=== PATIENT | female | born 1930 | race Caucasian/White ===

== ENCOUNTER 2019-03-26 15:59 | Emergency (ER) | payer MEDICARE, OTHER ==
[~2019-03-26] VITALS: Ht 152.4 cm; Wt 83.5 kg
[~2019-03-26 15:59] MED LIST: ALLO100T PO; ARIP5TAB10 PO; ARMO150T2 PO; ASPI-605 PO; ATOR20TA PO; BLOO-129 IN; DESV50TA PO; ERGO500014 PO; LURA40TA PO; METF-440 PO; OMEG1CAP55 PO; PANT40TA2 PO; SITA100T PO
--- NOTE | 2019-03-26 16:10 | NUR ---
"Chronic Back pain more on left side last couple nights +n/v" AA/OX3, SON AT BEDSIDE, PATIENT IN NO DISTRESS, ATTACHED TO THE MONITOR. KEPT COMFORTABLE. DENIES PAIN AT THIS TIME.
[2019-03-26 16:46] LABS: APPEARANCE,URINE Slightly Cloudy (CLEAR); BILIRUBIN,URINE Negative (NEGATIVE); BLOOD, URINE Negative Ery/uL (NEGATIVE); COLOR,URINE Yellow (YELLOW); KETONES,URINE Trace (NEGATIVE); LEUKOCYTE ESTERASE ,URINE Trace (NEGATIVE); NITRITE, URINE Positive (NEGATIVE); PH,URINE 7.5 (5.0-8.0); PROTEIN,URINE Negative (NEGATIVE); UGLUCOSE Negative (NEGATIVE); UROBILINOGEN,URINE 0.2 EU/dL (0.2)
[2019-03-26] MEDS ORDERED: ACETAMINOPHEN ES 500 MG TABLET ONE (16:46)
[2019-03-26] MEDS ORDERED: ACETAMINOPHEN ES 500 MG TABLET PO ONE (17:00)
[2019-03-26] MEDS ORDERED: IV NS 0.9% 500 ML BAG IV ONE (17:00)
[2019-03-26 17:02] LABS: BACTERIA,URINE 2+ /HPF (None Seen); RBC,URINE NONE SEEN /HPF (0-2); SQUAMOUS EPITHELIAL CELL,UR Few /HPF (None Seen)
[2019-03-26 17:05] LABS: CALCIUM, SERUM 9.3 mg/dL (8.5-10.1); CARBON DIOXIDE 34 mmol/L (21-32); CHLORIDE 104 mmol/L (98-107); CREATININE 1.2 mg/dL (0.6-1.3); GLUCOSE 97 mg/dL (74-106); POTASSIUM 4.4 mmol/L (3.5-5.1); SODIUM SERUM 143 mmol/L (136-145); UREA NITROGEN, BLOOD 20 mg/dL (7-18)
[2019-03-26 17:10] LABS: ALANINE AMINOTRANSFERASE 27 U/L (12-78); ALBUMIN 3.4 g/dL (3.4-5.0); ALKALINE PHOSPHATASE 58 U/L (46-116); ASPARTATE AMINOTRANSFERASE 25 U/L (15-37); BILIRUBIN,DIRECT 0.1 mg/dL (0.0-0.2); BILIRUBIN,TOTAL 0.2 mg/dL (0.2-1.0); LIPASE 223 U/L (73-393); TOTAL PROTEIN, SERUM 7.2 g/dL (6.4-8.2)
[2019-03-26 17:20] LABS: BASOPHILS % (AUTO) 0.3 % (0.0-2.0); EOSINOPHILS % (AUTO) 2.4 % (0.0-6.0); HEMATOCRIT 31 % (33-45); HEMOGLOBIN 10.1 g/dL (11.5-14.8); LYMPHOCYTES # (AUTO) 1.7 /CMM (0.8-4.8); LYMPHOCYTES % (AUTO) 34.7 % (20.0-44.0); MEAN CORPUSCULAR HGB CONC 32 g/dl (31.0-36.0); MEAN CORPUSCULAR VOLUME 89 fL (82-100); MONOCYTES # (AUTO) 0.4 /CMM (0.1-1.30); MONOCYTES % (AUTO) 7.5 % (2.0-12.0); NEUTROPHILS # (AUTO) 2.6 /CMM (1.8-8.9); NEUTROPHILS % (AUTO) 55.1 % (43.0-81.0); PLATELET COUNT (AUTO) 142 /CMM (150-450); RED BLOOD CELL COUNT(AUTO) 3.54 MIL/uL (4.0-5.2); WHITE BLOOD COUNT (AUTO) 4.8 K/uL (4.3-11.0)
[2019-03-26] MEDS ORDERED: CEFTRIAXONE 1GM BAG (ER ONLY) 1 GM/50 ML PIGGYBACK IV ONE (19:00)
[2019-03-26] MEDS ORDERED: CEFTRIAXONE 1GM BAG (ER ONLY) 50 ML IV ONE (19:02)
--- NOTE | 2019-03-26 19:33 | NUR ---
IV removed. Catheter intact and site benign. Pressure and 4x4 applied to site. No bleeding noted.Patient discharged to home in stable condition. Written and verbal after care instructions given. Patient verbalizes understanding of instruction.
[2019-03-26 19:34] VITALS: BP 130/80
== END 2019-03-26 19:35 | disposition home or self-care (01) ==
LOC: ER 16:06
DX: N39.0 Urinary tract infection, site not specified (principal); E11.9 Type 2 diabetes mellitus without complications; R19.7 Diarrhea, unspecified; F03.90 Unspecified dementia, unspecified severity, without behavioral disturbance, psychotic disturbance, mood disturbance, and anxiety; I10 Essential (primary) hypertension; K21.9 Gastro-esophageal reflux disease without esophagitis; E78.00 Pure hypercholesterolemia, unspecified; E86.0 Dehydration; Z98.890 Other specified postprocedural states; Z79.82 Long term (current) use of aspirin
CPT/HCPCS: 36415; 71045; 74176; 80048; 80076; 81001; 83690; 84484; 85025; 85730; 87077; 87086; 87186; 93005; 96365; 99284; J0696; J7040; 81000-TC

== ENCOUNTER 2019-07-18 23:12 | Emergency (ER) | payer MEDICARE, OTHER ==
[~2019-07-18] VITALS: Ht 152.4 cm; Wt 76.2 kg
--- NOTE | 2019-07-18 23:40 | NUR ---
PT PLACED AT BED 9 AND CAME TO ER W/ SON AT BEDSIDE C/O +N/+V/+D FOR 5 DAYS. PT STATES SHE HAS A SORE THROAT WELL. AAOX4. NO SOB. BREATHING EVENLY AND UNLABORED. NOT IN ANY DISTRESS. CONNECTED TO MONITOR.
--- NOTE | 2019-07-18 23:59 | NUR ---
xray at bedside
[2019-07-19] MEDS ORDERED: IV NS 0.9% 500 ML BAG IV ONE
[2019-07-19 00:05] LABS: BASOPHILS % (AUTO) 0.4 % (0.0-2.0); EOSINOPHILS % (AUTO) 0.2 % (0.0-6.0); HEMATOCRIT 33 % (33-45); HEMOGLOBIN 10.7 g/dL (11.5-14.8); LYMPHOCYTES # (AUTO) 0.8 /CMM (0.8-4.8); LYMPHOCYTES % (AUTO) 13.8 % (20.0-44.0); MEAN CORPUSCULAR HGB CONC 33 g/dl (31.0-36.0); MEAN CORPUSCULAR VOLUME 89 fL (82-100); MONOCYTES # (AUTO) 0.5 /CMM (0.1-1.30); MONOCYTES % (AUTO) 8.7 % (2.0-12.0); NEUTROPHILS # (AUTO) 4.6 /CMM (1.8-8.9); NEUTROPHILS % (AUTO) 76.9 % (43.0-81.0); PLATELET COUNT (AUTO) 160 /CMM (150-450)
--- NOTE | 2019-07-19 00:12 | NUR ---
FLU SPECIMEN SAMPLE OBTAINED FROM PATIENT
[2019-07-19 01:04] LABS: CALCIUM, SERUM 9.2 mg/dL (8.5-10.1); CARBON DIOXIDE 25 mmol/L (21-32); CHLORIDE 101 mmol/L (98-107); CREATININE 1.3 mg/dL (0.6-1.3); GLUCOSE 112 mg/dL (74-106); POTASSIUM 3.8 mmol/L (3.5-5.1); SODIUM SERUM 140 mmol/L (136-145); UREA NITROGEN, BLOOD 22 mg/dL (7-18)
[2019-07-19 01:10] LABS: ALANINE AMINOTRANSFERASE 17 U/L (12-78); ALBUMIN 3.4 g/dL (3.4-5.0); ALKALINE PHOSPHATASE 43 U/L (46-116); ASPARTATE AMINOTRANSFERASE 30 U/L (15-37); BILIRUBIN,DIRECT 0.1 mg/dL (0.0-0.2); BILIRUBIN,TOTAL 0.4 mg/dL (0.2-1.0); TOTAL PROTEIN, SERUM 7.9 g/dL (6.4-8.2)
--- NOTE | 2019-07-19 02:51 | NUR ---
IV removed. Catheter intact and site benign. Pressure and 4x4 applied to site. No bleeding noted. Patient discharged to home in stable condition. Written and verbal after care instructions given. Patient verbalizes understanding of instruction. ambulatory with a steady gait noted. pt aaox4 no acute distress noted, resp even and unlabored. pt son at bedside to take pt home.
[2019-07-19 02:53] VITALS: BP 127/63
== END 2019-07-19 02:54 | disposition home or self-care (01) ==
LOC: ER 23:15
DX: J06.9 Acute upper respiratory infection, unspecified (principal); R11.2 Nausea with vomiting, unspecified; F03.90 Unspecified dementia, unspecified severity, without behavioral disturbance, psychotic disturbance, mood disturbance, and anxiety; E11.9 Type 2 diabetes mellitus without complications; I10 Essential (primary) hypertension; K21.9 Gastro-esophageal reflux disease without esophagitis; E78.00 Pure hypercholesterolemia, unspecified; Z98.890 Other specified postprocedural states; Z79.899 Other long term (current) drug therapy; Z79.82 Long term (current) use of aspirin
CPT/HCPCS: 36415; 71045; 80048; 80076; 84145; 84484; 85025; 87804 ×2; 99284; J7040

== ENCOUNTER 2019-11-11 21:32 | Emergency (ER) | payer MEDICARE, OTHER ==
[~2019-11-11] VITALS: Ht 152.4 cm; Wt 75.7 kg
--- NOTE | 2019-11-11 22:07 | NUR ---
at the bed side
--- NOTE | 2019-11-11 22:10 | NUR ---
BIB SON C/O ABDOMINAL PAIN WITH NAUSEA, - VOMITING. PT WAS PLACED ON A MONITOR ,. SATTING 96% ON R/A. NO SOB AT THIS TIME. WILL CONT TO MONITOR,
[2019-11-11 22:38] LABS: BASOPHILS # (AUTO) 0.1 /CMM (0.0-0.2); BASOPHILS % (AUTO) 1.8 % (0.0-2.0); EOSINOPHILS % (AUTO) 3.2 % (0.0-6.0); HEMATOCRIT 29 % (33-45); HEMOGLOBIN 9.7 g/dL (11.5-14.8); LYMPHOCYTES # (AUTO) 1.9 /CMM (0.8-4.8); LYMPHOCYTES % (AUTO) 32.4 % (20.0-44.0); MEAN CORPUSCULAR HGB CONC 33 g/dl (31.0-36.0); MEAN CORPUSCULAR VOLUME 91 fL (82-100); MONOCYTES # (AUTO) 0.4 /CMM (0.1-1.30); MONOCYTES % (AUTO) 7.6 % (2.0-12.0); NEUTROPHILS # (AUTO) 3.1 /CMM (1.8-8.9); PLATELET COUNT (AUTO) 183 /CMM (150-450); RED BLOOD CELL COUNT(AUTO) 3.23 MIL/uL (4.0-5.2); WHITE BLOOD COUNT (AUTO) 5.7 K/uL (4.3-11.0)
[2019-11-11 22:51] LABS: ALANINE AMINOTRANSFERASE < 6 U/L (12-78); ALBUMIN 3.4 g/dL (3.4-5.0); ALKALINE PHOSPHATASE 50 U/L (46-116); ASPARTATE AMINOTRANSFERASE 38 U/L (15-37); BILIRUBIN,TOTAL 0.1 mg/dL (0.2-1.0); CALCIUM, SERUM 9.2 mg/dL (8.5-10.1); CARBON DIOXIDE 30 mmol/L (21-32); CHLORIDE 100 mmol/L (98-107); CREATININE 1.2 mg/dL (0.6-1.3); GLUCOSE 128 mg/dL (74-106); LIPASE 322 U/L (73-393); POTASSIUM 4.5 mmol/L (3.5-5.1); SODIUM SERUM 136 mmol/L (136-145); TOTAL PROTEIN, SERUM 7.2 g/dL (6.4-8.2); UREA NITROGEN, BLOOD 18 mg/dL (7-18)
[2019-11-11 23:40] LABS: APPEARANCE,URINE Clear (CLEAR); BILIRUBIN,URINE Negative (NEGATIVE); BLOOD, URINE Negative Ery/uL (NEGATIVE); COLOR,URINE Yellow (YELLOW); KETONES,URINE Negative (NEGATIVE); LEUKOCYTE ESTERASE ,URINE Small (NEGATIVE); NITRITE, URINE Negative (NEGATIVE); PROTEIN,URINE Negative (NEGATIVE); UGLUCOSE Negative (NEGATIVE); UROBILINOGEN,URINE 0.2 EU/dL (0.2)
[2019-11-11] MEDS ORDERED: AZITHROMYCIN 250 MG TABLET ONE (23:46)
[2019-11-12] MEDS ORDERED: AZITHROMYCIN 250 MG TABLET PO ONE
--- NOTE | 2019-11-12 00:05 | NUR ---
pt medically clear for D/C. IV removed. Catheter intact and site benign. Pressure and 4x4 applied to site. No bleeding noted.Patient discharged to home in stable condition. Rx and Written and verbal after care instructions given. Patient and son verbalizes understanding of instruction.
[2019-11-12 00:06] LABS: BACTERIA,URINE Few /HPF (None Seen); RBC,URINE 0-2 /HPF (0-2); SQUAMOUS EPITHELIAL CELL,UR Few /HPF (None Seen)
[2019-11-12 01:52] VITALS: BP 119/67
== END 2019-11-12 00:05 | disposition home or self-care (01) ==
LOC: ER 21:32
DX: J18.9 Pneumonia, unspecified organism (principal); F03.90 Unspecified dementia, unspecified severity, without behavioral disturbance, psychotic disturbance, mood disturbance, and anxiety; I10 Essential (primary) hypertension; K21.9 Gastro-esophageal reflux disease without esophagitis; E11.9 Type 2 diabetes mellitus without complications; R94.31 Abnormal electrocardiogram [ECG] [EKG]; E78.00 Pure hypercholesterolemia, unspecified; Z98.890 Other specified postprocedural states; Z79.899 Other long term (current) drug therapy; Z79.82 Long term (current) use of aspirin
CPT/HCPCS: 36415; 71045-TC; 80048-TC; 80076-TC; 81000-TC; 83690-TC; 84484-TC; 85025-TC; 87086-TC; 87186-TC

== ENCOUNTER 2019-12-07 00:23 | Inpatient (IN) | payer MEDICARE, OTHER ==
[~2019-12-07] VITALS: Ht 152.4 cm; Wt 85.4 kg
[2019-12-07] MEDS ORDERED: LIDOCAINE VISCOUS 2% UD 15 ML UDC ONE (00:48)
[2019-12-07] MEDS ORDERED: MAG HYDROX/AL HYDROX/SIMETH 30 ML UDC ONE (00:49)
--- NOTE | 2019-12-07 00:59 | NUR ---
PATIENT CAME TO ER BED 9 C/O MID EPIGASTRIC PAIN THAT OCCURRED 30x MINUTES MACHINE DESIGNER. PATENT C/O OF BURNING SENSATION. AAOX4. NO SOB. BREATHING EVENLY AND UNLABORED ON ROOM AIR.
[2019-12-07] MEDS ORDERED: ASPIRIN 81 MG TAB.CHEW PO ONE (01:00)
[2019-12-07] MEDS ORDERED: LIDOCAINE VISCOUS 2% UD 15 ML UDC MM ONE (01:00)
[2019-12-07] MEDS ORDERED: MAG HYDROX/AL HYDROX/SIMETH 30 ML UDC PO ONE (01:00)
[2019-12-07] MEDS ORDERED: ASPIRIN 81 MG TAB.CHEW ONE (01:03)
[2019-12-07 01:04] LABS: EOSINOPHILS % (AUTO) 3.3 % (0.0-6.0); HEMATOCRIT 31 % (33-45); HEMOGLOBIN 10.1 g/dL (11.5-14.8); LYMPHOCYTES # (AUTO) 1.7 /CMM (0.8-4.8); MEAN CORPUSCULAR HGB CONC 33 g/dl (31.0-36.0); MEAN CORPUSCULAR VOLUME 90 fL (82-100); MONOCYTES # (AUTO) 0.3 /CMM (0.1-1.30); MONOCYTES % (AUTO) 7.5 % (2.0-12.0); NEUTROPHILS # (AUTO) 2.4 /CMM (1.8-8.9); NEUTROPHILS % (AUTO) 52.2 % (43.0-81.0); PLATELET COUNT (AUTO) 158 /CMM (150-450); RED BLOOD CELL COUNT(AUTO) 3.41 MIL/uL (4.0-5.2); WHITE BLOOD COUNT (AUTO) 4.6 K/uL (4.3-11.0)
[2019-12-07 01:15] LABS: CARBON DIOXIDE 32 mmol/L (21-32); CHLORIDE 101 mmol/L (98-107); CREATININE 1.4 mg/dL (0.6-1.3); GLUCOSE 86 mg/dL (74-106); POTASSIUM 4.2 mmol/L (3.5-5.1); SODIUM SERUM 139 mmol/L (136-145); UREA NITROGEN, BLOOD 13 mg/dL (7-18)
[2019-12-07 01:20] LABS: ALANINE AMINOTRANSFERASE 20 U/L (12-78); ALBUMIN 3.6 g/dL (3.4-5.0); ALKALINE PHOSPHATASE 44 U/L (46-116); ASPARTATE AMINOTRANSFERASE 21 U/L (15-37); BILIRUBIN,DIRECT 0.1 mg/dL (0.0-0.2); BILIRUBIN,TOTAL 0.2 mg/dL (0.2-1.0); LIPASE 281 U/L (73-393); TOTAL PROTEIN, SERUM 7.1 g/dL (6.4-8.2)
[2019-12-07] MEDS ORDERED: ONDANSETRON HCL/PF 4 MG/2 ML VIAL IVP PRN (02:00)
[2019-12-07] MEDS ORDERED: ZOLPIDEM TARTRATE 5 MG TABLET PO PRN (02:00)
[2019-12-07] MEDS ORDERED: Z GUARD REMEDY 2 OZ OINT TP PRN (02:00)
[2019-12-07] MEDS ORDERED: HYDROCODONE/APAP 5/325MG TABLET PO PRN (02:00)
[2019-12-07] MEDS ORDERED: IV NS 0.9% 1,000 ML IV PRN (02:00)
[2019-12-07] MEDS ORDERED: MAGNESIUM HYDROXIDE 30 ML UDC PO PRN (02:00)
--- NOTE | 2019-12-07 02:10 | NUR ---
PER NURSING SUP, NO TELE BED AVAILABLE AT THIS TIME
--- NOTE | 2019-12-07 02:20 | NUR ---
AMBULATED TO THE RESTROOM WITH ASSISTANCE
--- NOTE | 2019-12-07 02:29 | NUR ---
US AT BEDSIDE.
--- NOTE | 2019-12-07 06:04 | NUR ---
PATIENT IS ASLEEP. EASILY AROUSED THROUGH VERBAL AND TACTILE STIMULI. BREATHING EVENLY AND UNLABORED ON ROOM AIR. CONNECTED TO MONITOR.
--- NOTE | 2019-12-07 07:20 | NUR ---
RECEIVED REPORT FROM WILIAN NEWSOME FOR [facility], PT IS AAOX3, NOT IN RESPIRATORY DISTRESS, V/S STABLE, KEPT RESTED AND COMFORTABLE, WILL CONTINUE TO MONITOR.
--- NOTE | 2019-12-07 08:16 | NUR ---
PT ASSIGNED [id number]
--- NOTE | 2019-12-07 08:40 | NUR ---
REPORT GIVEN TO WILIAN WARREN FOR [facility].
[2019-12-07] MEDS ORDERED: OMEGA ACID ETHYL ESTERS PO SCH (09:00)
[2019-12-07] MEDS ORDERED: Medication Not On Formulary EA (Sitagliptin Phosphate (Januvia) 100 MG) PO SCH (09:00)
[2019-12-07] MEDS ORDERED: ASPIRIN EC 81 MG TABLET.DR PO SCH (09:00)
[2019-12-07] MEDS ORDERED: Armodafinil (Nuvigil) 150 MG PO SCH (09:00)
[2019-12-07] MEDS ORDERED: IV NS 0.9% 1,000 ML IV ONE (09:30)
--- NOTE | 2019-12-07 09:30 | NUR ---
CLAY [employer]IG[employer] LOADERFIELD CANE SCALE CLERK NOTES Received Patient via jonel. Patient in stable condition. VS stable with no acute distress. Breathing even and unlabored on 2LPM via NC with no respiratory distress. Denies pain. No signs and symptoms of pain. Skin intact. Telemonitor in place and patent reading SB with HR-52. 20g PIV on RAC clean, intact, patent and flushing well. Safety precautions in place. Bed locked and set to lowest position with side rails x 2 up. All needs rendered at this time. Call light within reach. Will continue to monitor.
[2019-12-07] MEDS: ASPIRIN 81 MG TAB.CHEW PO SCH (10:37)
[2019-12-07] MEDS: METFORMIN 500 MG TABLET PO SCH ×2 (10:37→16:26)
[2019-12-07] MEDS: LINAGLIPTIN 5 MG TABLET PO SCH (10:38)
[2019-12-07] MEDS: PANTOPRAZOLE 40 MG TABLET.DR PO SCH (10:38)
[2019-12-07] MEDS: ATORVASTATIN 10 MG TABLET PO SCH (10:38)
[2019-12-07] MEDS ORDERED: ATORVASTATIN 10 MG TABLET PO SCH (11:00)
--- NOTE | 2019-12-07 11:00 | NUR ---
OCCUPATIONAL HEALTH AND SAFETY ADVISER NOTES VTE score 4. DVT Pumps ordered and received. Patient refusing at this time. Ambulatory with walker. Patient in stable condition. Will continue to monitor.
[2019-12-07] MEDS: ACETAMINOPHEN 325 MG TABLET PO PRN (12:53)
[2019-12-07 13:40] LABS: CHOLESTEROL 124 mg/dL (<200); FERRITIN 19 ng/mL (8-388); HDL CHOLESTEROL 58 mg/dL (40-60); LDL 54 mg/dL (0-99); TRIGLYCERIDES 93 mg/dL (30-150)
[2019-12-07 13:49] LABS: IRON, SERUM 47 ug/dl (50-175); TOTAL IRON BINDING CAPACITY 310 ug/dl (250-450)
[2019-12-07 16:00] VITALS: BP 116/57
--- NOTE | 2019-12-07 18:31 | NUR ---
EAR MUFF ASSEMBLER CLOSING NOTES Patient resting in bed. VS stable with no acute distress. Breathing even and unlabored on 2LPM via NC with no respiratory distress. Denies pain. No signs and symptoms of pain. Skin intact. Telemonitor in place and patent reading SB with HR-56. 20g PIV on RAC clean, intact, patent and flushing well with NS infusing at 100ml/hr. Safety precautions in place. Bed locked and set to lowest position with side rails x 2 up. All needs rendered at this time. Call light within reach. Will endorse plan of care to oncoming shift.
--- NOTE | 2019-12-07 19:44 | NUR ---
RN GYN NOTES PATIENT RECEIVED IN BED RESTING, ALERT AND ORIENTED X 4, MAINLY FARSI SPEAKING. PATIENT ON NASAL CANNULA, 2L WITH NO SIGNS OF RESPIRATORY DISTRESS PRESENT, WITH EVEN NON-LABORED BREATHING. PATIENT ON TELE MONITOR SINUS BRADYCARDIA HEART RATE 59. IV ACCESS INTACT AND PATENT. SAFETY PRECAUTIONS IN PLACE WITH BED IN THE LOWEST POSITION, BILATERAL SIDE RAILS UP, BED LOCKED, BED ALARM ON, AND CALL LIGHT WITHIN EASY REACH OF THE PATIENT. WILL CONTINUE TO MONITOR PATIENT.
[2019-12-07 20:35] VITALS: BP 127/64
--- NOTE | 2019-12-07 22:00 | NUR ---
CARTON AND CAN SUPPLY SUPERVISOR NOTES PATIENT REMOVED IV ACCESS, INFORMED AND EDUCATED THE IMPORTANCE OF IV ACCESS. INSERTED NEW IV LINE ON RIGHT FOREARM, 20 GAUGE. HIDE THE LINES AND TUBING. WILL CONTINUE TO MONITOR PATIENT.
[2019-12-07] MEDS: ARIPIPRAZOLE 5 MG TABLET PO SCH (22:39)
[2019-12-08] VITALS: BP 135/54
[2019-12-08 04:03] VITALS: BP 121/62
--- NOTE | 2019-12-08 07:00 | NUR ---
AUTOMOTIVE EXHAUST EMISSIONS TECHNICIAN NOTES INITIAL ACCU-CHECK WAS DONE 0628, BLOOD SUGAR 46, RECHECKED BLOOD SUGAR 42. PATIENT WAS ASYMPTOMATIC. PATIENT WAS ABLE TO DRINK 2 JUICES AND EAT APPLE SAUCE. RECHECKED BLOOD SUGAR AT 0642, BLOOD SUGAR 41, PATIENT DRANK 2 MORE JUICES, AND PUDDING, RECHECKED BLOOD SUGAR AT 0657, BLOOD SUGAR 48. HEBERT RICE DNP, NOTIFIED, WAITING FOR ORDERS. NO NEW ORDERS AT THIS TIME. CHARGE NURSE YUDELKA WAS NOTIFIED AND AWARE. WILL CONTINUE TO MONITOR.
--- NOTE | 2019-12-08 07:40 | NUR ---
REPAIRER FINISHED METAL NOTES PATIENT IN BED, AWAKE, ALERT AND ORIENTED, MAINLY FARSI SPEAKING. ON CONTACT PRECAUTION FOR ESBL OF THE URINE. PATIENT ON NASAL CANNULA 2L, NO SIGNS OF RESPIRATORY DISTRESS, NO SIGNS OF SOB, AND WITH EVEN NON-LABORED BREATHING. PATIENT KEPT CLEAN AND DRY, IV ACCESS INTACT, IN PLACE, AND PATENT. ON SPLICER APPRENTICE SINUS PAUL, 60'S. PATIENT'S LAST BLOOD SUGAR, 48, MD AWARE, CHARGE NURSE AWARE, AND ENDORSED TO DAYSHIFT NURSE. SAFETY PRECAUTIONS IN PLACE WITH BED IN THE LOWEST POSITION, BILATERAL SIDE RAILS UP, BED LOCKED, AND CALL LIGHT WITHIN EASY REACH OF THE PATIENT. WILL ENDORSE PLAN OF CARE TO UPCOMING DAYSHIFT NURSE.
--- NOTE | 2019-12-08 07:40 | NUR ---
TELE/RN OPENING NOTES RECEIVED PATIENT IN BED, AWAKE, ALERT AND ORIENTED, BS 50MG/DL, CRANBERRY JUICE WITH SUGAR WAS GIVEN. ON CONTACT PRECAUTION FOR ESBL OF THE URINE. PATIENT ON NASAL CANNULA 2L, NO SIGNS OF RESPIRATORY DISTRESS, NO SIGNS OF SOB, AND WITH EVEN NON-LABORED BREATHING. PATIENT KEPT CLEAN AND DRY, IV ACCESS INTACT, IN PLACE, AND PATENT. ON MONORAIL CRANE OPERATOR SINUS PAUL, 56. SAFETY PRECAUTIONS IN PLACE WITH BED IN THE LOWEST POSITION, BILATERAL SIDE RAILS UP, BED LOCKED, AND CALL LIGHT WITHIN EASY REACH OF THE PATIENT. WILL CONTINUE TO MONITOR.
[2019-12-08] MEDS: BLOOD SUGAR DIAGNOSTIC 1 EACH STRIP IN SCH (08:07)
--- NOTE | 2019-12-08 08:08 | NUR ---
TELE/RN NOTES BS 83MG/DL 0 COVERAGE.
[2019-12-08 08:10] VITALS: BP 126/70
[2019-12-08 08:59] LABS: BASOPHILS % (AUTO) 0.2 % (0.0-2.0); EOSINOPHILS % (AUTO) 2.6 % (0.0-6.0); HEMATOCRIT 32 % (33-45); HEMOGLOBIN 10.6 g/dL (11.5-14.8); LYMPHOCYTES # (AUTO) 1.2 /CMM (0.8-4.8); LYMPHOCYTES % (AUTO) 17.6 % (20.0-44.0); MEAN CORPUSCULAR HGB CONC 33 g/dl (31.0-36.0); MEAN CORPUSCULAR VOLUME 91 fL (82-100); MONOCYTES # (AUTO) 0.3 /CMM (0.1-1.30); MONOCYTES % (AUTO) 4.3 % (2.0-12.0); NEUTROPHILS # (AUTO) 5.1 /CMM (1.8-8.9); NEUTROPHILS % (AUTO) 75.3 % (43.0-81.0); PLATELET COUNT (AUTO) 143 /CMM (150-450); RED BLOOD CELL COUNT(AUTO) 3.53 MIL/uL (4.0-5.2); WHITE BLOOD COUNT (AUTO) 6.8 K/uL (4.3-11.0)
--- NOTE | 2019-12-08 09:00 | NUR ---
AWAITING CONSENT FOR CTA ABDOMEN PELVIS.
[2019-12-08 09:15] LABS: ALANINE AMINOTRANSFERASE 17 U/L (12-78); ALBUMIN 3.6 g/dL (3.4-5.0); ALKALINE PHOSPHATASE 39 U/L (46-116); ASPARTATE AMINOTRANSFERASE 20 U/L (15-37); BILIRUBIN,TOTAL 0.4 mg/dL (0.2-1.0); CALCIUM, SERUM 8.7 mg/dL (8.5-10.1); CARBON DIOXIDE 28 mmol/L (21-32); CHLORIDE 101 mmol/L (98-107); CREATININE 1.4 mg/dL (0.6-1.3); GLUCOSE 89 mg/dL (74-106); MAGNESIUM 1.5 mg/dL (1.8-2.4); PHOSPHORUS 4.4 mg/dL (2.5-4.9); POTASSIUM 4.2 mmol/L (3.5-5.1); SODIUM SERUM 138 mmol/L (136-145); UREA NITROGEN, BLOOD 13 mg/dL (7-18)
[2019-12-08 09:17] LABS: CHOLESTEROL 126 mg/dL (<200); HDL CHOLESTEROL 60 mg/dL (40-60); LDL 54 mg/dL (0-99); TRIGLYCERIDES 104 mg/dL (30-150)
[2019-12-08] MEDS: LINAGLIPTIN 5 MG TABLET PO SCH (09:55)
[2019-12-08] MEDS: METFORMIN 500 MG TABLET PO SCH (09:55)
[2019-12-08] MEDS: PANTOPRAZOLE 40 MG TABLET.DR PO SCH (09:55)
[2019-12-08] MEDS: ASPIRIN 81 MG TAB.CHEW PO SCH (09:55)
[2019-12-08] MEDS: ATORVASTATIN 10 MG TABLET PO SCH (09:56)
[2019-12-08] MEDS ORDERED: IV NS 0.9% 250 ML IV ONE (09:59)
[2019-12-08] MEDS ORDERED: IOHEXOL-350 100 ML VIAL IV ONE (09:59)
[2019-12-08] MEDS ORDERED: CT SWABBABLE VALVE TRANS SET 1 EA INFUS.SET MC ONE (10:00)
--- NOTE | 2019-12-08 10:07 | NUR ---
TELE/RN NOTES PATIENT IS OUT IN THE UNIT FOR CT ABDOMEN, PELVIS WITH TELEPHONE CONSENT SIGN BY PUNEET (SON), REINFORCING STEEL WORKER WIRE MESH BY SAMPLE CUTTER TYRELL.
--- NOTE | 2019-12-08 11:10 | NUR ---
TELE/RN NOTES WITH HELD METFORMIN 500MG BID FOR 3DAYS DECEMBER 07 AND DEC 11 2019 PER [facility] RINGER DUE TO CT WITH CONTRAST. MD AND CHARGE NURSE ARE AWARE. WILL ENDORSED TO NEXT SHIFT NURSE.
[2019-12-08] MEDS: Magnesium 1GM/D5W 100ML PREMIX 100 ML IV SCH ×2 (11:28→12:58)
--- NOTE | 2019-12-08 11:30 | NUR ---
TELE/RN NOTES PATIENT CAME BACK FROM RADIOLOGY.
--- NOTE | 2019-12-08 11:35 | NUR ---
TELE/RN NOTES PATIENT COMPLAINED OF HEADACHE AT THE RATE OF 4/10. ADMINISTERED ACETAMINOPHEN 650MG ORAL. WILL CONTINUE TO MONITOR.
[2019-12-08] MEDS: ACETAMINOPHEN 325 MG TABLET PO PRN ×2 (11:37→18:35)
[2019-12-08 16:00] VITALS: BP 137/67
--- NOTE | 2019-12-08 18:37 | NUR ---
MS/RN NOTES PATIENT COMPLAINED OF HEADACHE RATE OF 4/10 GIVEN TYLENOL 650MG P.O.
--- NOTE | 2019-12-08 18:45 | NUR ---
MS/RN CLOSING NOTES PATIENT IN BED, AWAKE, ALERT AND ORIENTED, BS 50MG/DL, CRANBERRY JUICE WITH SUGAR WAS GIVEN. ON CONTACT PRECAUTION FOR ESBL OF THE URINE. PATIENT REMOVED THE NASAL CANNULA AND REFUSED TO USED IT. NO SIGNS OF RESPIRATORY DISTRESS, NO SIGNS OF SOB, AND WITH EVEN NON-LABORED BREATHING. PATIENT KEPT CLEAN AND DRY, IV ACCESS INTACT, IN PLACE, AND PATENT. SEEN AND EXAMINED BY MD WITH ORDER MADE AND CARRIED OUT. ALL DUE MEDS WAS GIVEN. SAFETY PRECAUTIONS IN PLACE WITH BED IN THE LOWEST POSITION, BILATERAL SIDE RAILS UP, BED LOCKED, AND CALL LIGHT WITHIN EASY REACH OF THE PATIENT. WILL ENDORSED TO PHOTO STUDIO ASSISTANT FOR [facility].
--- NOTE | 2019-12-08 19:20 | NUR ---
MS RN OPENING NOTES PATIENT AWAKE IN BED. A/OX3. FARSI SPEAKING. ON RA. NO S/S OF ACUTE RESPIRATORY DISTRESS OR PAIN NOTED. IV PRESENT ON LEFT FA, SIZE 24, INTACT & PATENT, WITH NS RUNNING AT 75 ML/HR. SAFETY MEASURES IN PLACE AND PATIENT'S NEEDS MET. BED LOCKED, HOB ELEVATED, SIDE RAILS X2, CALL LIGHT WITHIN REACH. WILL CONTINUE TO MONITOR.
[2019-12-08 20:00] VITALS: BP 112/56
[2019-12-08 20:09] VITALS: BP 140/47
--- NOTE | 2019-12-08 20:15 | NUR ---
MS RN NOTES PATIENT C/O CHEST PAIN. 5L NC PLACED ON PATIENT. VITAL SIGNS - BP: 139/50 HR: 69 SPO2: 100. PAGED SCREW MACHINE OPERATOR SINGLE SPINDLE DOCTOR, AWAITING CALLBACK.
--- NOTE | 2019-12-08 20:21 | NUR ---
MS RN NOTES RECEIVED CALLBACK FROM EXERCISE PLANNER SHEEP OR CALF GRADER, SHAGUFTA MURO. ORDERS GIVEN AND CARRIED OUT.
[2019-12-08] MEDS ORDERED: NITROGLYCERIN 0.4 MG/TAB BOTTLE SL PRN (20:30)
--- NOTE | 2019-12-08 21:10 | NUR ---
DIAL MAKER NOTES ONE TAB OF PRN NITROGLYCERIN SL GIVEN TO PATIENT AT 2103. PATIENT STATED RELIEF OF CHEST PAIN. VITAL SIGNS - BP: 134/53 HR: 70 SPO2: 100. TELE MONITOR READING NSR. WILL CONTINUE TO MONITOR.
[2019-12-08] MEDS: ARIPIPRAZOLE 5 MG TABLET PO SCH (21:42)
[2019-12-09] VITALS: BP 140/73
[2019-12-09 04:00] VITALS: BP 120/60
[2019-12-09 04:31] VITALS: BP 120/60
[2019-12-09] MEDS: BLOOD SUGAR DIAGNOSTIC 1 EACH STRIP IN SCH (06:35)
[2019-12-09 07:16] LABS: BASOPHILS % (AUTO) 0.5 % (0.0-2.0); EOSINOPHILS % (AUTO) 4.7 % (0.0-6.0); HEMATOCRIT 29 % (33-45); HEMOGLOBIN 9.6 g/dL (11.5-14.8); LYMPHOCYTES # (AUTO) 1.2 /CMM (0.8-4.8); LYMPHOCYTES % (AUTO) 28.6 % (20.0-44.0); MEAN CORPUSCULAR HGB CONC 33 g/dl (31.0-36.0); MEAN CORPUSCULAR VOLUME 90 fL (82-100); MONOCYTES # (AUTO) 0.3 /CMM (0.1-1.30); NEUTROPHILS # (AUTO) 2.5 /CMM (1.8-8.9); NEUTROPHILS % (AUTO) 58.2 % (43.0-81.0); PLATELET COUNT (AUTO) 146 /CMM (150-450); RED BLOOD CELL COUNT(AUTO) 3.19 MIL/uL (4.0-5.2); WHITE BLOOD COUNT (AUTO) 4.2 K/uL (4.3-11.0)
[2019-12-09 07:50] LABS: ALBUMIN 3.3 g/dL (3.4-5.0); BILIRUBIN,TOTAL 0.4 mg/dL (0.2-1.0); CALCIUM, SERUM 8.6 mg/dL (8.5-10.1); CREATININE 1.2 mg/dL (0.6-1.3); MAGNESIUM 1.9 mg/dL (1.8-2.4); PHOSPHORUS 4.2 mg/dL (2.5-4.9); POTASSIUM 4.3 mmol/L (3.5-5.1); TOTAL PROTEIN, SERUM 6.5 g/dL (6.4-8.2)
--- NOTE | 2019-12-09 07:50 | NUR ---
FIELD CONTROL INSPECTOR CLOSING NOTES PATIENT SLEEPING IN BED, EASY TO AWAKEN. A/OX3. ON RA. NO S/S OF ACUTE RESPIRATORY DISTRESS OR PAIN NOTED. TELE MONITOR READING NSR. IV PRESENT ON RIGHT FA, SIZE 22, INTACT & PATENT. SAFETY MEASURES IN PLACE AND PATIENT'S NEEDS MET. BED LOCKED, HOB ELEVATED, SIDE RAILS X2, CALL LIGHT WITHIN REACH. WILL ENDORSE TO DAY SHIFT NURSE PLAN OF CARE.
[2019-12-09 08:00] VITALS: BP 139/64
--- NOTE | 2019-12-09 08:03 | NUR ---
MS RN OPENING NOTES RECEIVED PATIENT IN BED, ASLEEP. PATIENT ON OXYGEN THERAPY AT 2 LPM. BREATHING IS EVEN AND UNLABORED; NO SOB AT THIS TIME. NO SIGNS OF PAIN SUCH MOANING OR GUARDING. RFA IV ACCESS IS IN PLACE, INTACT AND INFUSING NS AT 75 MLS/HR. SAFETY PRECAUTIONS IN PLACE; BED IN LOW POSITION AND LOCKED, RAILS UP X2, CALL LIGHT WITHIN REACH. WILL CONTINUE TO MONITOR PATIENT.
[2019-12-09] MEDS: LINAGLIPTIN 5 MG TABLET PO SCH (09:20)
[2019-12-09] MEDS: ASPIRIN 81 MG TAB.CHEW PO SCH (09:20)
[2019-12-09] MEDS: PANTOPRAZOLE 40 MG TABLET.DR PO SCH (09:20)
[2019-12-09] MEDS: ATORVASTATIN 10 MG TABLET PO SCH (09:20)
--- NOTE | 2019-12-09 15:47 | NUR ---
MS MERCHANDISER SEASONAL NOTES PATIENT DISCHARGED HOME IN MEDICALLY STABLE CONDITION. PATIENT CAN TOLERATE ROOM AIR WELL AND SATURATING AT 97%. A/O X3. ALL DISCHARGE DOCUMENTATIONS READY AND SIGNED. TEACHING REGARDING MEDICATIONS AND DIAGNOSIS PROVIDED AND PATIENT VERBALIZED UNDERSTANDING. VALUABLES ACCOUNTED FOR AND FORM SIGNED WELL. ALL NEEDS ATTENDED TOO. BEFORE LEAVING THE FLOOR PATIENT'S WRIST BAND AND IV WERE REMOVED. PATIENT LEFT THE FLOOR ACCOMPANIED BY RN.
[2019-12-12] MEDS ORDERED: ERGOCALCIFEROL (VITAMIN D 2) 50,000 UNIT CAPSULE PO SCH (09:00)
== END 2019-12-09 15:40 | disposition home health service (06) | DRG 391 ==
LOC: ER 00:27 → TRANSITION 05:40 → TELE 08:26 → MED 12-08 12:16 → TELE 12-08 20:34 → MED 12-09 08:44
PROVIDERS: ADMIT Family Medicine; ATTEND Hospitalist
DX: K21.9 Gastro-esophageal reflux disease without esophagitis (principal); N17.0 Acute kidney failure with tubular necrosis; K86.2 Cyst of pancreas; I50.32 Chronic diastolic (congestive) heart failure; F03.90 Unspecified dementia, unspecified severity, without behavioral disturbance, psychotic disturbance, mood disturbance, and anxiety; E11.65 Type 2 diabetes mellitus with hyperglycemia; Z96.659 Presence of unspecified artificial knee joint; Z90.710 Acquired absence of both cervix and uterus; Z90.49 Acquired absence of other specified parts of digestive tract; Z79.899 Other long term (current) drug therapy; Z79.84 Long term (current) use of oral hypoglycemic drugs; Z79.82 Long term (current) use of aspirin; M10.9 Gout, unspecified; D63.8 Anemia in other chronic diseases classified elsewhere; E66.9 Obesity, unspecified; I25.10 Atherosclerotic heart disease of native coronary artery without angina pectoris; E83.42 Hypomagnesemia; E78.5 Hyperlipidemia, unspecified; I72.8 Aneurysm of other specified arteries; I11.0 Hypertensive heart disease with heart failure; I70.1 Atherosclerosis of renal artery; K57.30 Diverticulosis of large intestine without perforation or abscess without bleeding; I08.0 Rheumatic disorders of both mitral and aortic valves
CPT/HCPCS: 36415; 71045-TC; 80048-TC; 80053-TC; 80061-TC; 80076-TC; 82728-TC; 82962-TC; 83540-TC; 83690-TC; 83735-TC; 83880; 84100-TC; 84484-TC; 85025-TC; 85730-TC; 87081-TC; 93307-TC; G0378; J2405; J3475; J7030; J7050; Q9967